=== PATIENT | female | born 1940 | race Caucasian/White ===

== ENCOUNTER 2017-12-24 13:22 | Inpatient (IN) | payer MEDICARE ==
[~2017-12-24] VITALS: Ht 167.6 cm; Wt 55.0 kg
[~2017-12-24 13:22] MED LIST: AMLODIPINE5 MG PO; BL ADULT ASA81 MG OR; CIPRO XR500 M1 PO; FLAGYL500 MG PO; LORTAB 5 OR; MAXIDE1 COMBO OR; METO50TA52 PO; MONOPRIL40 MG OR; TOPROL XL100 MG OR
--- NOTE | 2017-12-24 13:41 | NUR ---
PT AMBULATORY TO ROOM.
[2017-12-24] MEDS ORDERED: TOPROL XL25 MG PO (14:08)
[2017-12-24] MEDS ORDERED: HYDROCHLOROT25 MG PO (14:09)
--- NOTE | 2017-12-24 14:15 | NUR ---
PT STATES THAT SHE WAS SENT TO THE ER AFTER BLOOD WORK SHOWED ELEVATED LEVELS. PT DENIES ANY C/P, SOB N/V OR WEAKNESS. PT IS AOX4. PT STATES WANTING FOOD TO EAT, ADVISED OF NPO STATUS UNTIL BLOOD WORK IS BACK.
[2017-12-24 14:16] LABS: HEMOGLOBIN 15.2 g/dl (12.0-16.0); IMMATURE GRANULOCYTES 0.7 % (0.0-5.0); MEAN CELL VOLUME 84.1 fL CALC (80.0-100.0); MEAN CORPUSCULAR HGB 29.1 pG CALC (26.0-32.0); MEAN CORPUSCULAR HGB CONC 34.5 g/L CALC (32.0-36.0); NEUT# 14.11 thou/uL (2.00-7.15); RED BLOOD COUNT 5.23 mill/uL (4.20-5.60); RED CELL DISTRI WIDTH 13.9 % (11.5-15.5)
[2017-12-24 14:28] LABS: ALBUMIN 4.1 g/dL (3.2-5.0); BILIRUBIN, TOTAL 0.6 mg/dL (0.0-1.4); CREATININE 3.2 mg/dL (0.5-1.0); POTASSIUM 4.1 mmol/l (3.5-5.1); TOTAL PROTEIN 6.8 g/dL (6.3-8.2)
--- NOTE | 2017-12-24 15:15 | NUR ---
PT RESTING ON STRETCHER, NO COMPLAINTS STATED AT THIS TIME
--- NOTE | 2017-12-24 15:30 | NUR ---
MD AT BEDSIDE TO EXPLAIN FINDING AND DISPOSITION
--- NOTE | 2017-12-24 16:30 | NUR ---
PT RESTING ON STRETCHER, NO COMPLAINTS STATED. BRYAN AT BEDSIDE
--- NOTE | 2017-12-24 16:52 | NUR ---
REPORT CALLED TO CAN THOMPSON- ACCEPTED PT
--- NOTE | 2017-12-24 17:45 | NUR ---
PT ARRIVED TO FLOOR VIA STRETCHER ACCOMPANIED BY ANJELICA TOMLIN;PT AMBULATED WITH A WEAK GAIT AND 1 PERSON ASSIST TO STANDING SCALE AND BEDSIDE;WT AND VS OBTAINED BY YUSEF SIGALA;PT ORIENTED TO ROOM AND CALL LIGHT SYSTEM;PT ALERT AND ORIENTED X3;PT REPORTS FEELING WEAK AND DIZZY LATELY AND SENT TO ER FROM PCP;ASSESSMENT COMPLETED;RESPIRATIONS EVEN AND UNLABORED ON RA,CLEAR LUNG SOUNDS NOTED WITH MILD NON-PRODUCTIVE COUGH AT TIMES;ABDOMEN SOFT ON PALPATION AND ACTIVE IN ALL 4 QUADRANTS,LAST BM 12/24/17;STRONG PEDAL PULSES;#20G TO LEFT FOREARM INFUSING NS @ 100ML/HR PER ORDER,SITE APPEARS HEALTHY;DRESSING TO LEFT FOREHEAD INTACT PT REPORTS THERE ARE SEVERAL SUTURES IN PLACE FROM BIOPSY DONE AT THE RECONSTRUCTIVE DENTIST TO BE REMOVED 12/25/17;GENERALIZED BRUISING NOTED THROUGHOUT SKIN OTHERWISE INTACT;PT DENIES ANY CURRENT PAIN,PAIN SCALE AND REPORTING EDUCATED;DINNER PROVIDED PER REQUEST;PT DENIES ANY OTHER CURRENT NEEDS AND IS INSTUCTED TO CALL FOR ASSISTANCE IF NEEDED;FALL PRECAUTIONS IN PLACE WITH BED IN THE LOWEST POSITION;CALL LIGHT IN REACH;WILL CONTINUE TO MONITOR
--- NOTE | 2017-12-24 17:50 | NUR ---
Admission Note Report Given to: CAN THOMPSON Transported by: Wheelchair X Stretcher Transported with: X Nurse Transporter X Patent IV O2 Pearl Fisherman TRANSPORTED TO [facility] [place] WITHOUT INCIDENT
[2017-12-24 17:52] VITALS: BP 125/76
[2017-12-24 19:19] VITALS: BP 96/60
--- NOTE | 2017-12-24 19:30 | NUR ---
PATIENT RESTING IN BED AT THIS TIME WATCHING TV-AWAKE ALERT AND ORIENTEDX3. PATIENT WITH NO COMPLAINTS AT THIS TIME. IV SITE LEFT FOREARM INTACT AND APPEARS HEALTHY WITH IVF NS PATENT AND INFUSING AT 100CC/HR. DRESSING TO LEFT SIDE OF FOREHEAD INTACT. PATIENT HAD DERMATOLOGY PROCEDURE AND WAS TO SEE HIM IN AM FOR SUTURE REMOVAL. PATIENT DENIES ANY PAIN AT THIS TIME. SAFETY PRECAUTIONS REINFORCED. CALL LIGHT IN REACH. WILL CONT TO MONITOR.
[2017-12-24 20:40] LABS: URINE BILIRUBIN - DIPSTICK NEGATIVE (NEGATIVE); URINE BLOOD DIPSTICK NEGATIVE (NEGATIVE); URINE CLARITY CLEAR; URINE COLOR YELLOW; URINE GLUCOSE - DIPSTICK NEGATIVE (NEGATIVE); URINE KETONE NEGATIVE (NEGATIVE); URINE LEUK ESTERASE NEGATIVE (NEGATIVE); URINE NITRITE - DIPSTICK NEGATIVE (Negative); URINE PH 5.5 (4.5-8.0); URINE PROTEIN - DIPSTICK TRACE mg/dL (NEG-TRACE); URINE SPECIFIC GRAVITY 1.025; URINE UROBILINOGEN - DIPSTICK 0.2 E.U./dL (0.2)
--- NOTE | 2017-12-24 23:58 | NUR ---
PATIENT UP TO THE BR TO VOID AND THEN BACK TO BED. NO COMPLAINTS AT THIS TIME. IVF PATENT AND INFUSING AT 100CCV/HR. SITE REMIANS HEALTHY AT THIS TIME. SAFETY PRECAUTIONS REINFORCED. CALL LIGHT IN REACH. WILL CONT TO MONITOR,
[2017-12-25 00:20] VITALS: BP 96/67
--- NOTE | 2017-12-25 02:06 | NUR ---
PATIENT CALLED AND ASSISTED TO BR TO VOID 200CC OF CLEAR YELLOW URINE-BACK TO BED. NO COMPLAINTS AT THIS TIME. IVF NS HUNG AND INFUSING AT 100CC/HR. SAFETY PRECAUTIONS REINFORCED. CALL LIGHT IN REACH.WILL CONT TO MONITOR.
[2017-12-25 04:28] VITALS: BP 98/63
--- NOTE | 2017-12-25 04:39 | NUR ---
RESTING IN BED WITH NO COMPLAINTS AT THIS TIME. IVF PATENT AND INFUSING VIA LEFT FOREARM AT 100CC/HR. CALL LIGHT IN REACH. WILL CONT TO MONITOR.
[2017-12-25 05:11] LABS: HEMOGLOBIN 13.5 g/dl (12.0-16.0); IMMATURE GRANULOCYTES 0.4 % (0.0-5.0); MEAN CELL VOLUME 83.7 fL CALC (80.0-100.0); MEAN CORPUSCULAR HGB CONC 34.6 g/L CALC (32.0-36.0); NEUT# 8.12 thou/uL (2.00-7.15); RED BLOOD COUNT 4.66 mill/uL (4.20-5.60); RED CELL DISTRI WIDTH 13.8 % (11.5-15.5)
[2017-12-25 05:29] LABS: CREATININE 1.5 mg/dL (0.5-1.0); MAGNESIUM 1.9 mg/dL (1.6-2.3); POTASSIUM 3.6 mmol/l (3.5-5.1)
--- NOTE | 2017-12-25 07:07 | NUR ---
PATIENT RESTING IN BED AT THIS TIME-AWAKE ALERT AND ORIENTED. PATIENT STATES THAT SHE HAD SEVERAL EPISODES OF DIAARHEA LAST NIGHT. INSTRUCTED PATIENT TO LET STAFF KNOW WHEN SHE HAS THIS DIARRHEA SO THAT IT CAN BE EVALUATED. VERBALIZES UNDERSTANDING. CALL LIGHT IN REACH. WILL CONT TO MONITOR.
--- NOTE | 2017-12-25 07:08 | NUR ---
BEDSIDE REPORT RECEIVED BY VANCE. PT IS RESTING IN BED. CALL LIGHT IN REACH.
[2017-12-25 07:35] VITALS: BP 98/61
--- NOTE | 2017-12-25 08:03 | NUR ---
ASSESSMENT DONE . RESPS EVEN AND UNLABORED. PT DENIES PAIN AT THIS TIME. PT STATED THAT SHE HAS A DRY COUGH. PT HAS ON LEFT SIDE FOREHEAD DRESSING THAT IS CDI. NS 100ML/HR INFUSING WELL. PT DENIES NEEDS AT THIS TIME. SAFETY PRECAUTIONS AND CALL LIGHT IN REACH.
[2017-12-25] MEDS ORDERED: PRAVASTATIN20 MG PO (09:50)
[2017-12-25] MEDS ORDERED: LOSARTAN POT50 MG PO (09:53)
[2017-12-25] MEDS ORDERED: MINOCYCLINE100 MG PO (09:55)
--- NOTE | 2017-12-25 12:00 | NUR ---
PT IS SITTING IN THE SIDE OF THE BED EATING HER LUNCH. PT DENIES NEEDS AT THIS TIME. CALL LIGHT IN REACH.
--- NOTE | 2017-12-25 16:10 | NUR ---
AMBULATED WITH PT IN THE HALLWAYS AND PT DID WELL. PT STATED THAT HER ABDOMEN PAIN WENT AWAY.
[2017-12-25 16:30] VITALS: BP 109/61; BP 111/64
--- NOTE | 2017-12-25 17:00 | NUR ---
REMOVE SUTURES FROM LEFT SIDE FOREHEAD. PT TOLERATED WELL.
[2017-12-25 19:12] VITALS: BP 117/63
--- NOTE | 2017-12-25 19:19 | NUR ---
PT IN BED A/O X3, RESPIRATIONS EVEN AND UNLABORED ON RA. NS INFUSING TO LFA AT 100CC/HR. C/O ABDOMINAL DISCOMFORT AND SLIGHT NAUSEA, REFUSES TYLENOL ORDERED FOR PAIN. ZOFRAN IV PROVIDED PER JUL. ENCOURAGED TO DRINK FLUIDS, PO FLUIDS IN REACH. ABDOMEN SOFT, NOT DISTENDED, BS ACTIVE. ADMITS TO 4 WATERY BM'S TODAY. WILL CONTINUE TO MONITOR. CALL LIGHT IN REACH.
--- NOTE | 2017-12-26 | NUR ---
OOB TO BATHROOM WITH STEADY GAIT, VOIDING 200ML OF CLEAR YELLOW URINE, THEN BACK TO BED. C/O BS HYPERACTIVE, DENIES PAIN AT THIS TIME, PO FLUIDS IN EACH, IV FLUIDS INFUSING WITH NO COMPLICATIONS. CALL LIGHT IN REACH.
[2017-12-26 04:12] VITALS: BP 115/73
--- NOTE | 2017-12-26 04:40 | NUR ---
MORNING BLOOD WORK DRAWN BY ACCOUNT DIRECTOR AT THIS TIME, TOLERATED WELL.
[2017-12-26 05:06] LABS: HEMATOCRIT 43.5 % (37.0-47.0); HEMOGLOBIN 14.9 g/dl (12.0-16.0); IMMATURE GRANULOCYTES 0.8 % (0.0-5.0); MEAN CELL VOLUME 83.8 fL CALC (80.0-100.0); MEAN CORPUSCULAR HGB 28.7 pG CALC (26.0-32.0); MEAN CORPUSCULAR HGB CONC 34.3 g/L CALC (32.0-36.0); NEUT# 6.3 thou/uL (2.00-7.15); RED BLOOD COUNT 5.19 mill/uL (4.20-5.60); RED CELL DISTRI WIDTH 13.7 % (11.5-15.5)
[2017-12-26 05:13] LABS: BILIRUBIN, TOTAL 0.4 mg/dL (0.0-1.4); CREATININE 1.1 mg/dL (0.5-1.0); MAGNESIUM 1.9 mg/dL (1.6-2.3); POTASSIUM 3.5 mmol/l (3.5-5.1)
[2017-12-26 05:15] LABS: ALBUMIN 2.8 g/dL (3.2-5.0)
--- NOTE | 2017-12-26 06:29 | NUR ---
C/O NAUSEA, ZOFRAN 4MG IV ADMINISTERED PER MAR. IV FLUIDS INFUSING TO LFA WITH NO COMPLICATIONS, CALL LIGHT IN REACH.
--- NOTE | 2017-12-26 07:01 | NUR ---
BEDSIDE REPORT RECEIVED BY MANNY. PT IS RESTING IN BED AND DENIES NEEDS AT THIS TIME .CALL LIGHT IN REACH.
[2017-12-26 07:35] VITALS: BP 106/72
--- NOTE | 2017-12-26 08:02 | NUR ---
ASSESSMENT DONE. RESPS EVEN AND UNLABORED. NS 100ML/HR INFUSING WELL. PT STATED PAIN IN ABDOMEN LIKE GAS. PT REFUSED PAIN MEDICATION. ENCOURAGE PT TO AMBULATE IN THE HALLWAYS. PT VERBALIZED UNDERSTANDING. SAFETY PRECAUTIONS REINFORCED AND CALL LIGHT IN REACH.
--- NOTE | 2017-12-26 08:34 | NUR ---
PT IS AMBULATING IN THE HALLWAYS WITH SLOW STEADY GAIT.
[2017-12-26] MEDS ORDERED: ZPAK PO (10:59)
[2017-12-26] MEDS ORDERED: MEDDOSEPAK PO (11:54)
--- NOTE | 2017-12-26 11:58 | NUR ---
PT IS SITTING IN THE SIDE OF THE BED. MEDICATED PT WITH SOLU-MEDROL PER CARLEEN LIM FOR PT HAVING ITCHING AND REDNESS ON RIGHT HAND. PT DENIES ANY OTHER NEEDS AT THIS TIME. SON IN ROOM. CALL LIGHT IN REACH.
--- NOTE | 2017-12-26 12:50 | NUR ---
PT IS STILL ICHING. MEDICATED PT WITH BENADRYL SEE EMAR. PT DENIES ANY OTHER NEEDS. CALL LIGHT IN REACH.
[2017-12-26] MEDS ORDERED: CIPROFLOXACN750 MG PO (13:11)
[2017-12-26] MEDS ORDERED: BENADRYL25 M1 PO (14:05)
--- NOTE | 2017-12-26 14:13 | NUR ---
Discharge instructions given. Patient verbalizes understanding of same. Discharged in stable condition via Wheelchair to Home with family. All belongings sent with pt.
== END 2017-12-26 14:13 | disposition home or self-care (01) | DRG 372 ==
LOC: ED 13:22 → ED-I 13:52 → ED 13:52 → ED-I 15:28 → ED 16:26 → MS2 16:27
PROVIDERS: Emergency Medicine; ADMIT Internal Medicine; ATTEND Internal Medicine
DX: A04.5 Campylobacter enteritis (principal); N17.9 Acute kidney failure, unspecified; E87.1 Hypo-osmolality and hyponatremia; I12.9 Hypertensive chronic kidney disease with stage 1 through stage 4 chronic kidney disease, or unspecified chronic kidney disease; N18.3 Chronic kidney disease, stage 3 (moderate); E86.0 Dehydration; M19.90 Unspecified osteoarthritis, unspecified site; L50.0 Allergic urticaria; T36.3X5A Adverse effect of macrolides, initial encounter; J44.9 Chronic obstructive pulmonary disease, unspecified; F17.210 Nicotine dependence, cigarettes, uncomplicated; Z85.828 Personal history of other malignant neoplasm of skin

== ENCOUNTER 2019-12-18 05:42 | Day surgery (SDC) | payer MEDICARE ==
[~2019-12-18 05:42] MED LIST changes: +ALLERGY RELIEF25 MG PO; -AMLODIPINE5 MG PO; +ASPIRIN ADULT L81 M2; +BENADRYL25 M1 PO; -BL ADULT ASA81 MG OR; +CENTRUM SILVER1 TA1 PO; +CIPROFLOXACN750 MG PO; +HYDROCHLOROT25 MG PO; +LOSARTAN POT50 MG PO; +MEDDOSEPAK PO; +MINOCYCLINE100 MG PO; +NORVASC5 M1 PO; +PRAVASTATIN20 MG PO; +TOPROL XL25 MG PO; +VITAMIN B-12500 MCG PO; +ZPAK PO
[2019-12-18] MEDS ORDERED: NORCO1 TA1 PO (08:16)
[2019-12-18 08:33] VITALS: BP 95/54
== END 2019-12-18 09:00 | disposition home or self-care (01) ==
LOC: ORM 05:42
PROVIDERS: ATTEND Neurological Surgery
PROC: 01N50ZZ Release Median Nerve, Open Approach (ICD-10-PCS; principal; 2019-12-18)
DX: G56.02 Carpal tunnel syndrome, left upper limb (principal); I10 Essential (primary) hypertension; F17.200 Nicotine dependence, unspecified, uncomplicated; Z11.59 Encounter for screening for other viral diseases
CPT/HCPCS: J0131; J1100

== ENCOUNTER 2022-03-09 09:48 | Emergency (ER) | payer MEDICARE ==
[~2022-03-09] VITALS: Ht 167.6 cm; Wt 52.6 kg
[~2022-03-09 09:48] MED LIST changes: +NORCO1 TA1 PO
[2022-03-09 10:11] VITALS: BP 159/84
[2022-03-09 10:15] VITALS: BP 162/85
[2022-03-09 10:30] VITALS: BP 156/89
[2022-03-09] MEDS ORDERED: CLINDAMYCIN300 M1 PO (10:33)
[2022-03-09 10:39] VITALS: BP 156/89
== END 2022-03-09 10:42 | disposition home or self-care (01) ==
LOC: ED 09:48
DX: K08.89 Other specified disorders of teeth and supporting structures (principal); I10 Essential (primary) hypertension; F17.210 Nicotine dependence, cigarettes, uncomplicated